=== PATIENT | male | born 1995 ===

== ENCOUNTER → 2021-02-16 12:53 | Outpatient (CLI) | payer OTHER | END | disposition home or self-care (01) | LOC: LAB 12:53 | PROVIDERS: ATTEND Specialist/Technologist, Other Nephrology | DX: I12.9 Hypertensive chronic kidney disease with stage 1 through stage 4 chronic kidney disease, or unspecified chronic kidney disease (principal); N18.30 Chronic kidney disease, stage 3 unspecified; E11.21 Type 2 diabetes mellitus with diabetic nephropathy; D63.1 Anemia in chronic kidney disease; N30.00 Acute cystitis without hematuria; E03.9 Hypothyroidism, unspecified; E78.49 Other hyperlipidemia ==